=== PATIENT | male | born 1985 | race American Indian/Alaskan Native ===

== ENCOUNTER 2019-10-03 15:36 | Emergency (ER) | payer SELFPAY ==
[2019-10-03 15:40] VITALS: BP 124/80
--- NOTE | 2019-10-03 18:15 | Emergency Department Report ---
Blank Doc - Documentation Documentation: 34-year-old male that presents with right knee pain after heavy object hit knee. This initial assessment/diagnostic orders/clinical plan/treatment(s) is/are subject to change based on patient's health status, clinical progression and re- assessment by fellow clinical providers in the ED. Further treatment and workup at subsequent clinical providers discretion. Patient/guardians urged not to elope from the ED as their condition may be serious if not clinically assessed and managed. Initial orders include: 1- Patient sent to [facility] for further evaluation and treatment 2- xrays
--- NOTE | 2019-10-03 20:46 | Emergency Department Report ---
ED Extremity Problem HPI - General Chief complaint: Extremity Problem,Nontraumatic Stated complaint: LFT KNEE CANT PUT PRESSURE Time Seen by Provider: 10/03/19 18:13 Source: patient Mode of arrival: Wheelchair Limitations: No Limitations - History of Present Illness Initial comments: Patient is a 34-year-old -[place] male with a history of chronic low back pain and right knee pain following an injury at work about 1 year ago and who presents to the ED with complaint of acute exacerbation of his chronic pain characterized by worsening low back pain that radiates to the right leg, severe right knee pain due to frequent falls from losing balance on the right knee. Patient states that he is status post right knee surgery to reattach previously torn ligaments. Patient denies numbness and tingling or weakness of right leg, dizziness, chest pain, shortness of breath, dizziness, hematuria, swelling of right leg, abdominal pain and testicular pain. MD Complaint: extremity pain (right knee; right leg), joint paint (right knee and leg) -: Sudden, week(s) (2) Location: right, lower extremity (knee and lower leg), knee History of Same: Yes (chronic right knee pain from injury) -: No myalgia, Yes arthralgia, No fever, No associated dyspnea, No associated chest pain Radiation: distal Severity scale (0 -10): 6 Quality: aching, sharp, constant Consistency: constant Improves with: nothing Worsens with: weight bearing, walking, palpation Associated Symptoms: denies other symptoms, arthralgias. denies: chest pain, shortness of breath, fever, myalgias, rash - Related Data Previous Rx's Medication Instructions Recorded Last Taken Type Gabapentin 300 mg PO Q12H PRN #30 cap 10/03/19 Unknown Rx Naproxen 500 mg PO Q12H PRN #30 tablet 10/03/19 Unknown Rx predniSONE [Deltasone] 40 mg PO QDAY #12 tab 10/03/19 Unknown Rx Allergies Allergy/AdvReac Type Severity Reaction Status Date / Time No Known Allergies Allergy Unverified 10/03/19 15:39 ED Review of Systems ROS: Stated complaint: LFT KNEE CANT PUT PRESSURE Other details as noted in HPI Constitutional: denies: chills, fever Eyes: denies: eye pain, eye discharge, vision change ENT: denies: ear pain, throat pain Respiratory: denies: cough, shortness of breath, wheezing Cardiovascular: denies: chest pain, palpitations Endocrine: no symptoms reported Gastrointestinal: denies: abdominal pain, nausea, diarrhea Genitourinary: denies: urgency, dysuria Musculoskeletal: back pain (lower), arthralgia (RIGHT KNEE). denies: joint s welling Skin: denies: rash, lesions Neurological: denies: headache, weakness, paresthesias Psychiatric: denies: anxiety, depression Hematological/Lymphatic: denies: easy bleeding, easy bruising ED Past Medical Hx - Past Medical History Previous Medical History?: No - Surgical History Past Surgical History?: Yes Additional Surgical History: Left knee - Social History Smoking Status: Never Smoker Substance Use Type: None - Medications Home Medications: Home Medications Medication Instructions Recorded Confirmed Last Taken Type Gabapentin 300 mg PO Q12H PRN #30 cap 10/03/19 Unknown Rx Naproxen 500 mg PO Q12H PRN #30 tablet 10/03/19 Unknown Rx predniSONE [Deltasone] 40 mg PO QDAY #12 tab 10/03/19 Unknown Rx ED Physical Exam - General Limitations: No Limitations General appearance: alert, in no apparent distress - Head Head exam: Present: atraumatic, normocephalic, normal inspection - Eye Eye exam: Present: normal appearance, PERRL, EOMI Pupils: Present: normal accommodation - ENT ENT exam: Present: normal exam, normal orophraynx, mucous membranes moist, TM's normal bilaterally, normal external ear exam - Neck Neck exam: Present: normal inspection, full ROM - Respiratory Respiratory exam: Present: normal lung sounds bilaterally. Absent: respiratory distress, wheezes, rales, chest wall tenderness, decreased breath sounds, prolonged expiratory - Cardiovascular Cardiovascular Exam: Present: regular rate, normal rhythm, normal heart sounds. Absent: systolic murmur, diastolic murmur, rubs, gallop - GI/Abdominal GI/Abdominal exam: Present: soft, normal bowel sounds. Absent: distended, tenderness - Extremities Exam Extremities exam: Present: normal inspection, full ROM, tenderness (Palpable right knee tenderness), normal capillary refill - Back Exam Back exam: Present: normal inspection, full ROM, tenderness (Palpable mild lumbosacral paraspinal musculoskeletal tenderness), muscle spasm, paraspinal tenderness - Neurological Exam Neurological exam: Present: alert, oriented X3, CN II-XII intact, normal gait, reflexes normal - Psychiatric Psychiatric exam: Present: normal affect, normal mood, anxious - Skin Skin exam: Present: warm, dry, intact, normal color. Absent: rash ED Course Vital Signs 10/03/19 15:39 Temperature 97.6 F Pulse Rate 61 Respiratory 16 Rate Blood Pressure 124/80 [Right] O2 Sat by Pulse 99 Oximetry ED Medical Decision Making - Medical Decision Making This is a 34-year-old male with a history of chronic right knee injury and pain who presents to the ED with acute exacerbation of the right knee pain and low back pain for the last 2 weeks, worse in the last 2 days. Patient also complains of low back pain that radiates to his right leg. Patient states that the pain radiates from his low back with a tingling sensation to his right foot and right leg. Patient states that he has had persistent frequent falls from losing balance on the right knee. Patient states that he has a history of chronic right knee pain following an injury at work and that right knee surgery to reattach torn ligaments. Patient denies weakness of right leg, hematuria, dysuria, fall, traumatic injury, nausea and vomiting, chest pain or shortness of breath, fever and chills. - Differential Diagnosis lumbar radiculopathy; Knee injury; Knee sprain; Chronic osteoarthritis Critical care attestation.: If time is entered above; I have spent that time in minutes in the direct care of this critically ill patient, excluding procedure time. ED Disposition Clinical Impression: Lumbar back pain with radiculopathy affecting right lower extremity, Chronic pain of right lower extremity Right knee pain Qualifiers: Chronicity: chronic Qualified Code(s): M25.561 - Pain in right knee; G89.29 - Other chronic pain Disposition: DC-01 TO HOME OR SELFCARE Is pt being admited?: No Does the pt Need Aspirin: No Condition: Stable Instructions: Lumbar Radiculopathy (ED), Arthralgia (ED), Knee Pain (ED) Additional Instructions: Take medications with food, drink plenty of fluids and follow-up with your orthopedic surgeon as previously scheduled. Return to the ED immediately if symptoms get worse. Prescriptions: predniSONE [Deltasone] 40 mg PO QDAY #12 tab Gabapentin 300 mg PO Q12H PRN #30 cap PRN Reason: Pain , Severe (7-10) Naproxen 500 mg PO Q12H PRN #30 tablet PRN Reason: Pain , Severe (7-10) Referrals: [facility] [Outside] - 3-5 Days Forms: Work/School Release Form(ED) Time of Disposition: 20:44 Print Language: [place]LAND[place]
== END 2019-10-03 21:00 | disposition home or self-care (01) ==
LOC: ED 15:36
DX: M54.16 Radiculopathy, lumbar region (principal); M25.561 Pain in right knee; Z98.890 Other specified postprocedural states; Z79.899 Other long term (current) drug therapy; W22.8XXA Striking against or struck by other objects, initial encounter; Y93.89 Activity, other specified; Y92.89 Other specified places as the place of occurrence of the external cause; Y99.8 Other external cause status
CPT/HCPCS: 99282